=== PATIENT | female | born 1995 | race Caucasian/White ===

== ENCOUNTER 2019-10-30 17:13 | Emergency (ER) | payer OTHER, SELFPAY ==
[2019-10-30 17:21] VITALS: BP 140/85; PULSE 82; RESP 23; TEMP 36.7; O2SAT 100
[2019-10-30 17:26] VITALS: PULSE 92
--- NOTE | 2019-10-30 17:31 | ECG_ITS ---
Measurements Intervals [place] Rate: 73 P: 44 NM: 121 QRS: 32 QRSD: 93 T: 28 QT: 386 QTc: 428 Interpretive Statements SINUS RHYTHM INCOMPLETE RIGHT BUNDLE BRANCH BLOCK BORDERLINE ECG Electronically Signed On 10-30-2019 18:44:14 CDT by Jasmeet Grissom D.O.
[2019-10-30 17:42] LABS: Basophils Percent Auto 0.4 % (0.2-1.2); Eosinophils Percent Auto 0.6 % (0-4.4); Hematocrit 42.2 % (37.0-47.0); Hemoglobin 14.6 g/dL (12.0-15.0); Immature Granulocyte Absolute 0.02 K/mm3 (0.00-0.031); Immature Granulocyte Percent A 0.3 % (0-0.5); Lymphocytes Percent Auto 31.2 % (18.3-44.2); Mean Corpuscular HGB Conc 34.6 g/dl (32-36); Mean Corpuscular Hemoglobin 30.7 pg (26-34); Mean Corpuscular Volume 88.7 fl (80-100); Mean Platelet Volume 9.7 fl (7.4-10.4); Monocytes Absolute Auto 0.4 K/mm3 (0.1-0.6); Monocytes Percent Auto 5.2 % (2.6-8.5); Neutrophils Absolute Auto 4.2 K/mm3 (1.3-6.7); Neutrophils Percent Auto 62.3 % (45.5-73.1); Platelet Count Result 348 k/mm3 (150-375); Red Blood Count 4.76 M/mm3 (4.2-5.4); Red Cell Distribution Width 11.9 % (11.5-14.5); White Blood Count 6.7 K/mm3 (4.5-10.0)
--- NOTE | 2019-10-30 17:44 | ED.GENADULT ---
HPI - General Adult General Chief complaint: Chest Pain <Thiago Farley PA-C - Last Filed: 10/30/19 18:40> Stated complaint: CP <Thiago Farley PA-C - Last Filed: 10/30/19 18:40> Time Seen by Provider: 10/30/19 17:17 <Thiago Farley PA-C - Last Filed: 10/30/19 18:40> Source: patient <SANDI Smith Last Filed: 10/30/19 18:40> Mode of arrival: ambulatory <SANDI Smith Last Filed: 10/30/19 18:40> Limitations: no limitations <Thiago Farley PA-C - Last Filed: 10/30/19 18:40> History of Present Illness HPI narrative: Patient is a 23-year-old female who presents with a few days duration noting 3 days of left-sided chest pain that seems to be worse with swallowing patient traveled from [place] recently and on arrival to visit her boyfriend in [place] has been having some discomfort in the left chest patient denies similar occurrence in the past. Patient notes she has had some dark stools and has been taking Pepto-Bismol of late. Patient denies any fever chills nausea vomiting or URI symptoms and on arrival is in no distress. Patient presents from urgent care had negative chest x-ray at urgent care and unremarkable EKG <Thiago Farley PA-C - Last Filed: 10/30/19 18:40> Related Data Home medications: Home Medications Medication Instructions Recorded Confirmed methylphenidate HCl 10 mg PO DAILY 10/30/19 <Thiago Farley PA-C - Last Filed: 10/30/19 18:40> Allergies/adverse reactions: Allergies Allergy/AdvReac Type Severity Reaction Status Date / Time No Known Allergies Allergy Verified 10/30/19 17:19 <Thiago Farley PA-C - Last Filed: 10/30/19 18:40> Review of Systems Review of Systems: All systems reviewed & are unremarkable except as noted in HPI and below <Thiago Farley PA-C - Last Filed: 10/30/19 18:40> [facility] Social History Social History: Social History Smoking status: Never smoker Gender identity (if verbalized by the patient): Female <Thiago Farley PA-C - Last Filed: 10/30/19 18:40> Exam Narrative: Exam Narrative: GENERAL: Well-appearing, well-nourished, and in no acute distress. HEAD: Normocephalic, atraumatic. EYES: PERRLA and EOMI. ENT: Nares clear, no rhinorrhea or epistaxis. Mucous membranes moist. CHEST: Clear to auscultation. No respiratory distress. No wheezes rales or rhonchi HEART: Regular rate and rhythm. No murmur heard. Normal peripheral pulses.. Reproducible left chest wall tenderness to palpation ABDOMEN: Soft, nontender, nondistended EXTREMITIES: Normal range of motion. No edema. SKIN: Warm, dry, no rash. NEURO: No focal deficits. Alert and oriented x3. Cranial nerves II through XII grossly intact PSYCH: Normal mood and affect. <SANDI Smith Last Filed: 10/30/19 18:40> Course Course Emergency Course: Patient in the room aware of case findings treatment plan and diagnosis resting comfortably in the room in no distress felt appropriate for outpatient reevaluation <SANDI Smith Last Filed: 10/30/19 18:40> Vital Signs Vital signs: Vital Signs Temperature 98.1 F 10/30/19 17:21 Pulse Rate 82 10/30/19 17:21 Respiratory Rate 23 H 10/30/19 17:21 Blood Pressure 140/85 10/30/19 17:21 Pulse Oximetry 100 10/30/19 17:21 Temperature 98.1 F 10/30/19 17:21 Pulse Rate 68 10/30/19 18:19 Respiratory Rate 13 10/30/19 18:19 Blood Pressure 121/67 10/30/19 18:19 Pulse Oximetry 100 10/30/19 18:19 <SANDI Smith Last Filed: 10/30/19 18:40> Vital Signs Temperature 98.1 F 10/30/19 17:21 Pulse Rate 82 10/30/19 17:21 Respiratory Rate 23 H 10/30/19 17:21 Blood Pressure 140/85 10/30/19 17:21 Pulse Oximetry 100 10/30/19 17:21 Temperature 98.1 F 10/30/19 17:21 Pulse Rate 68 10/30/19 18:19 Respiratory Rate 13 10/30/19
[2019-10-30 17:52] LABS: Prothrombin Time 12.8 Seconds (11.1-14.7)
[2019-10-30 17:53] LABS: Partial Thromboplastin Time 29.3 SECONDS (22.3-36.8)
[2019-10-30 17:55] LABS: Alanine Aminotransferase 14 U/L (4-35); Alkaline Phosphatase 114 U/L (38-126); Aspartate Amino Transferase 28 U/L (14-36); Bilirubin,Total 0.6 mg/dL (0.2-1.3); Blood Urea Nitrogen 11 mg/dL (7-17); Calcium 9.3 mg/dL (8.4-10.2); Carbon Dioxide 25 mmol/L (22-30); Chloride 103 mmol/L (98-107); Estimated CRCL calculation 62 ml/min; Estimated Glomerular Filt Rate > 60; Glucose 89 mg/dL (65-105); Lipase 54 U/L (23-300); Potassium 3.6 mmol/L (3.4-5.0); Sodium 136 mmol/L (137-145)
[2019-10-30] MEDS: FAMOTIDINE 20 MG/2 ML VIAL IV PUSH (17:55)
[2019-10-30] MEDS: SODIUM CHLORIDE 0.9% IV 1,000 ML 999 ML IV CONT (17:55)
[2019-10-30] MEDS: BELLADONNA ALK/PHENOB ELIX 10 ML, MAG HYDROX/ALUMINUM HYD/SIMETH 30 ML, LIDOCAINE HCL 2... PO (17:56)
[2019-10-30 18:00] LABS: D Dimer 0.27 ug/mL (<0.48)
[2019-10-30 18:06] LABS: Troponin I < 0.012 ng/mL (0.000-0.034)
[2019-10-30 18:19] VITALS: BP 121/67; PULSE 68; RESP 13; O2SAT 100
== END 2019-10-30 19:02 | disposition home or self-care (01) ==
PROVIDERS: Emergency Medicine Emergency Medical Services; Emergency Provider General Practice
DX: R07.9 Chest pain, unspecified (principal)
CPT/HCPCS: 36415; 80048; 80076; 81025; 83690; 84484; 85025; 85380; 85610; 85730; 93005; 96374; 99284; A9270; J7030